=== PATIENT | female | born 1975 | race Caucasian/White ===

== ENCOUNTER 2019-03-16 07:28 | Day surgery (SDC) | payer BC ==
[~2019-03-16 07:28] MED LIST: Bupivacaine 0.25% 10 ML SDV ONE; Methylene Blue 50 MG/10 ML Ampule ONE
[2019-03-16] MEDS ORDERED: Bupivacaine 0.25% 10 ML SDV ONE (07:51)
[2019-03-16] MEDS ORDERED: Sodium Chloride 0.9% 10 ML SDV IV PRN (07:57)
[2019-03-16] MEDS ORDERED: Sodium Chloride 0.9% 10 ML Syringe FLUSH PRN (07:57)
[2019-03-16] MEDS ORDERED: Sodium Chloride 0.9% 2.5 ML Syringe FLUSH PRN (07:57)
[2019-03-16] MEDS ORDERED: Neostigmine Methylsulfate 1 MG/ML 5 ML Syringe ONE (08:28)
[2019-03-16] MEDS ORDERED: Ondansetron 4 MG/2 ML SDV ONE (08:28)
[2019-03-16] MEDS ORDERED: Lidocaine 2% 5 ML SDV ONE (08:28)
[2019-03-16] MEDS ORDERED: Glycopyrrolate 0.2 MG/ML SDV ONE (08:28)
[2019-03-16] MEDS ORDERED: fentaNYL 250 MCG/5 ML SDV ONE (08:29)
[2019-03-16] MEDS ORDERED: Propofol 200 MG/20 ML SDV ONE (08:29)
[2019-03-16] MEDS ORDERED: Midazolam 1 MG/ML 2 ML SDV ONE (08:29)
[2019-03-16] MEDS ORDERED: Fluorescein 5 ML Vial ONE (08:30)
[2019-03-16] MEDS ORDERED: Vasopressin 20 Units/1 ML MDV ONE (08:30)
--- NOTE | 2019-03-16 08:34 | PCM.PREANE ---
Preanesthetic Assessment - Anesthesia/Transfusion/Family Hx Anesthesia History: Prior Anesthesia Without Reaction Family History of Anesthesia Reaction: No Transfusion History: No Prior Transfusion(s) Intubation History: Unknown - Review of Systems General: No Symptoms Pulmonary: No Symptoms Cardiovascular: No Symptoms Gastrointestinal: No Symptoms Neurological: No Symptoms Other: Reports: None - Physical Assessment Height: 5 ft 3 in Weight: 90.265 kg ASA Class: 2 Mental Status: Alert & Oriented x3 Airway Class: Mallampati = 2 Dentition: Reports: Normal Dentition Thyro-Mental Finger Breadths: 3 Mouth Opening Finger Breadths: 3 ROM/Head Extension: Full Lungs: Clear to Auscultation, Normal Respiratory Effort Cardiovascular: Regular Rate, Regular Rhythm - Lab Values: Laboratory Last Values Urine HCG, Qual NEGATIVE (NEGATIVE) 03/16/19 08:05 - Allergies Allergies/Adverse Reactions: Allergies Allergy/AdvReac Type Severity Reaction Status Date / Time No Known Allergies Allergy Verified 03/10/19 14:37 - Blood Blood Available: No - Anesthesia Plan Pre-Op Medication Ordered: None - Acknowledgements Anesthesia Type Planned: General Anesthesia Pt an Appropriate Candidate for the Planned Anesthesia: Yes Alternatives and Risks of Anesthesia Discussed w Pt/Guardian: Yes Pt/Guardian Understands and Agrees with Anesthesia Plan: Yes PreAnesthesia Questionnaire HEENT History: Reports: None Cardiovascular History: Reports: None Respiratory History: Reports: None Gastrointestinal History: Reports: None Genitourinary History: Reports: None 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: Musculoskeletal History: Reports: None Neurological History: Reports: None Psychiatric History: Reports: Depression Endocrine/Metabolic History: Reports: Obesity/BMI 30+ Hematologic History: Reports: None Immunologic History: Reports: None Oncologic (Cancer) History: Reports: None Dermatologic History: Reports: None - Past Surgical History Head Surgeries/Procedures: Reports: None HEENT Surgical History: Reports: Tonsillectomy Cardiovascular Surgical History: Reports: None Respiratory Surgical History: Reports: None GI Surgical History: Reports: None Female Surgical History: Reports: D&C Endocrine Surgical History: Reports: None Neurological Surgical History: Reports: None Musculoskeletal Surgical History: Reports: None Oncologic Surgical History: Reports: None Dermatological Surgical History: Reports: None - SUBSTANCE USE Smoking Status *Q: Current Every Day Smoker (< 1ppd) Tobacco Use Within Last Twelve Months: Cigarettes Recreational Drug Use History: No - HOME MEDS Home Medications: Home Meds Desvenlafaxine Succinate [Pristiq] 100 mg PO DAILY 03/10/19 [History] Ergocalciferol (Vitamin D2) [Vitamin D2] 2,000 units PO DAILY 03/10/19 [History] Levonorgestrel [Mirena] 1 device VAG ONETIME 03/10/19 [History] Multivitamin [Multivitamins] 1 tab PO DAILY 03/10/19 [History] - CURRENT (IN HOUSE) MEDS Current Meds: Current Medications Lactated Ringer's (Ringers, Lactated) 1,000 mls @ 100 mls/hr IV ASDIRECTED CONNIE Sodium Chloride (Saline Flush) 10 ml FLUSH ASDIRECTED PRN PRN Reason: Keep Vein Open Sodium Chloride (Saline Flush) 2.5 ml FLUSH ASDIRECTED PRN PRN Reason: Keep Vein Open Sodium Chloride (Normal Saline) 10 ml IV ASDIRECTED PRN PRN Reason: IV Use Discontinued Medications Bupivacaine HCl (Sensorcaine-Mpf 0.25%) Confirm Administered Dose 20 ml .ROUTE .STK-MED ONE Stop: 03/16/19 07:21 Bupivacaine HCl (Sensorcaine-Mpf 0.25%) Confirm Administered Dose 10 ml .ROUTE .STK-MED ONE Stop: 03/16/19 07:52 Fentanyl (Sublimaze) Confirm Administered Dose 250 mcg .ROUTE .STK-MED ONE Stop: 03/16/19 08:30 Glycopyrrolate (Robinul) Confirm Administered Dose 0.4 mg .ROUTE .STK-MED ONE Stop: 03/16/19 08:29 Lidocaine (Xylocaine-Mpf 2%) Confirm Administered Dose 5 ml .ROUTE .STK-MED ONE Stop: 03/16/19 08:29 Methylene Blue (Provayblue) Confirm Administered Dose 50 mg .ROUTE .STK-MED ONE Stop: 03/16/19 07:20 Midazolam HCl (Versed 1 Mg/Ml) Confirm Administered Dose 2 mg .ROUTE .STK-MED ONE Stop: 03/16/19 08:30 Neostigmine Methylsulfate (Neostigmine) Confirm Administered Dose 5 mg .ROUTE .STK-MED ONE Stop: 03/16/19 08:29 Ondansetron HCl (Zofran) Confirm Administered Dose 4 mg .ROUTE .STK-MED ONE Stop: 03/16/19 08:29 Propofol (Diprivan 20 Ml) Confirm Administered Dose 200 mg .ROUTE .[facility]-MED ONE Stop: 03/16/19 08:30
[2019-03-16] MEDS ORDERED: Scopolamine 1.5 MG Transdermal Patch TRDERM PRN (08:35)
[2019-03-16] MEDS: Lactated Ringers 1,000 ML IV SCH ×2 (08:41→13:42)
[2019-03-16 08:44] LABS: CHLORIDE,CL 106 mmol/L (98-107); SODIUM,NA 140 mmol/L (136-145)
[2019-03-16] MEDS ORDERED: fentaNYL 100 MCG/2 ML SDV ONE ×2 (09:08→10:46)
[2019-03-16] MEDS ORDERED: HYDROmorphone 2 MG/ML Syringe ONE ×3 (09:08→11:38)
[2019-03-16] MEDS ORDERED: ceFAZolin 1 GM Vial ONE (09:52)
[2019-03-16] MEDS ORDERED: Sodium Chloride 0.9% 20 ML ONE (09:52)
[2019-03-16] MEDS ORDERED: ePHEDrine 50 MG/ML SDV ONE (09:58)
[2019-03-16] MEDS ORDERED: Furosemide 40 MG/4 ML VIAL ONE (10:09)
[2019-03-16] MEDS ORDERED: Albuterol 0.083% 2.5 MG/3 ML Neb Soln NEB PRN (10:17)
[2019-03-16] MEDS ORDERED: Atropine 0.1 MG/ML 10 ML Syringe IVPUSH PRN ×2 (10:17)
[2019-03-16] MEDS ORDERED: Naloxone 0.4 MG/ML Syringe IVPUSH PRN (10:17)
[2019-03-16] MEDS ORDERED: fentaNYL 100 MCG/2 ML SDV IVPUSH PRN (10:17)
[2019-03-16] MEDS ORDERED: EPINEPHrine 1:10,000 1 MG/10 ML Syringe IVPUSH PRN (10:17)
[2019-03-16] MEDS ORDERED: 50% Dextrose in Water 50 ML Syringe IVPUSH PRN (10:17)
[2019-03-16] MEDS ORDERED: Octyl 2-Cyanoacrylate 1 Tube ONE (11:43)
[2019-03-16] MEDS ORDERED: Racepinephrine 2.25% 0.5 ML Neb Soln ONE (12:00)
[2019-03-16] MEDS ORDERED: Racepinephrine 2.25% 0.5 ML Neb Soln NEB ONE (12:04)
[2019-03-16] MEDS ORDERED: Sodium Chloride 0.9% Inhalation Soln 3 ML Neb INH PRN (12:04)
[2019-03-16] MEDS ORDERED: Ondansetron 4 MG/2 ML SDV IVPUSH PRN (12:07)
[2019-03-16] MEDS ORDERED: Acetaminophen/oxyCODONE 325-5 MG Tab PO PRN (12:07)
[2019-03-16] MEDS ORDERED: Morphine 4 MG/ML Syringe IVPUSH PRN (12:07)
[2019-03-16] MEDS ORDERED: Ketorolac 30 MG/ML SDV IVPUSH ONE (12:07)
[2019-03-16] MEDS ORDERED: Promethazine 25 MG/ML SDV IM PRN (12:07)
[2019-03-16] MEDS: Acetaminophen 1,000 MG in Premix Bag 1 BAG IV SCH ×2 (13:41→17:48)
[2019-03-16] MEDS: Metoclopramide 10 MG/2 ML SDV IVPUSH SCH ×2 (13:41→20:33)
--- NOTE | 2019-03-16 14:17 | PCM.POSTAN ---
POST ANESTHESIA ASSESSMENT - MENTAL STATUS Mental Status: Alert, Oriented - VITAL SIGNS Pulse Rate: 114 SaO2: 98 Resp Rate: 11 Blood Pressure: 140/77 - RESPIRATORY Respiratory Status: Respiratory Rate WNL, Airway Patent, O2 Saturation Stable - CARDIOVASCULAR CV Status: Pulse Rate WNL, Blood Pressure Stable - GASTROINTESTINAL GI Status: No Symptoms - PAIN Pain Score: 2 - POST OP HYDRATION Hydration Status: Adequate & Stable
[2019-03-16] MEDS: Acetaminophen/oxyCODONE 325-5 MG Tab PO PRN ×2 (16:38→20:42)
[2019-03-16] MEDS: Desvenlafaxine Succinate [Pristiq] 100 MG PO SCH (16:40)
[2019-03-16] MEDS ORDERED: Ketorolac 30 MG/ML SDV IVPUSH PRN (18:00)
[2019-03-17] MEDS: Acetaminophen 1,000 MG in Premix Bag 1 BAG IV SCH ×2 (00:20→05:30)
[2019-03-17] MEDS: Metoclopramide 10 MG/2 ML SDV IVPUSH SCH (05:19)
[2019-03-17] MEDS: Acetaminophen/oxyCODONE 325-5 MG Tab PO PRN (05:24)
[2019-03-17 06:47] LABS: CHLORIDE,CL 104 mmol/L (98-107); SODIUM,NA 139 mmol/L (136-145)
--- NOTE | 2019-03-17 07:12 | PCM48HPAN ---
Post Anesthesia Note - EVALUATION WITHIN 48HRS OF ANESTHETIC Vital Signs in Normal Range: Yes Patient Participated in Evaluation: Yes Respiratory Function Stable: Yes Airway Patent: Yes Cardiovascular Function Stable: Yes Hydration Status Stable: Yes Pain Control Satisfactory: Yes Nausea and Vomiting Control Satisfactory: Yes Mental Status Recovered: Yes Pulse Rate: 77 SaO2: 97 Resp Rate: 16 Temperature: 96.7 F Blood Pressure: 125/74
--- NOTE | 2019-03-17 07:51 | PCM.OPNOTE ---
- General Post-Op/Procedure Note Date of Surgery/Procedure: 03/17/19 Operative Procedure(s): LAVH/BS Findings: EUA showed normal sized uterus Laparoscopy shows normal pelvis , no endometriosis Pre Op Diagnosis: Abnormal uterine bleeding. Chronic pelvic pain Post-Op Diagnosis: Same Anesthesia Technique: General ET Tube Primary Surgeon: Mckenzie Brambila Secondary Surgeon: Monalisa Nuñez Pathology: Uterus and tubes Fluid Replacement, Intraop: 2,000 Output, Urine Amount: 300 EBL in mLs: 300 Complications: None Condition: Good Free Text/Narrative:: Intake & Output 03/16/19 03/17/19 03/17/19 22:59 06:59 14:59 Intake Total 440 2330 Output Total 350 1200 Balance 90 1130
--- NOTE | 2019-03-17 09:37 | PCM.SURGPN ---
- General Info Date of Service: 03/17/19 Date of Surgery/Procedure: 03/16/19 POD#: 1 Functional Status: Reports: Pain Controlled, Tolerating Diet, Ambulating, Urinating - Review of Systems General: Reports: No Symptoms HEENT: Reports: No Symptoms Pulmonary: Reports: No Symptoms Cardiovascular: Reports: No Symptoms Gastrointestinal: Reports: No Symptoms Genitourinary: Reports: No Symptoms Musculoskeletal: Reports: No Symptoms Skin: Reports: No Symptoms Neurological: Reports: No Symptoms Psychiatric: Reports: No Symptoms - Patient Data Vitals - Most Recent: Last Vital Signs Temp 36.8 C 03/17/19 07:35 Pulse 85 03/17/19 07:35 Resp 16 03/17/19 07:35 BP 133/73 03/17/19 07:35 Pulse Ox 96 03/17/19 07:35 Weight - Most Recent: 90.265 kg I&O - Last 24 Hours: Intake & Output 03/16/19 03/17/19 03/17/19 22:59 06:59 14:59 Intake Total 440 2330 2000 Output Total 350 1200 300 Balance 90 1130 1700 Lab Results Last 24 Hrs: Laboratory Results - last 24 hr 03/17/19 03/17/19 Range/Units 05:50 05:50 WBC 8.38 (4.0-11.0) K/uL RBC 4.17 L (4.30-5.90) M/uL Hgb 11.6 L (12.0-16.0) g/dL Hct 35.7 L (36.0-46.0) % MCV 85.6 (80.0-98.0) fL MCH 27.8 (27.0-32.0) pg MCHC 32.5 (31.0-37.0) g/dL RDW Std Deviation 42.8 (28.0-62.0) fl RDW Coeff of Da 14 (11.0-15.0) % Plt Count 220 (150-400) K/uL MPV 10.50 (7.40-12.00) fL Neut % (Auto) 71.8 (48.0-80.0) % Lymph % (Auto) 21.4 (16.0-40.0) % Blount % (Auto) 6.4 (0.0-15.0) % Eos % (Auto) 0.2 (0.0-7.0) % Baso % (Auto) 0.2 (0.0-1.5) % Neut # (Auto) 6.0 H (1.4-5.7) K/uL Lymph # (Auto) 1.8 (0.6-2.4) K/uL Blount # (Auto) 0.5 (0.0-0.8) K/uL Eos # (Auto) 0.0 (0.0-0.7) K/uL Baso # (Auto) 0.0 (0.0-0.1) K/uL Nucleated RBC % 0.0 /100WBC Nucleated RBCs # 0 K/uL Sodium 139 (136-145) mmol/L Potassium 3.5 (3.5-5.1) mmol/L Chloride 104 (98-107) mmol/L Carbon Dioxide 26.6 (21.0-32.0) mmol/L BUN 5 L (7.0-18.0) mg/dL Creatinine 0.5 L (0.6-1.0) mg/dL Est Cr Clr Drug Dosing 120.01 mL/min Estimated GFR (MDRD) > 60.0 ml/min Glucose 99 (74-106) mg/dL Calcium 8.2 L (8.5-10.1) mg/dL Med Orders - Current: Current Medications Lactated Ringer's (Ringers, Lactated) 1,000 mls @ 100 mls/hr IV ASDIRECTED [facility] Last Admin: 03/16/19 13:42 Dose: 100 mls/hr Acetaminophen 1,000 mg/ Premix 100 mls @ 400 mls/hr IV Q6H [facility] Last Admin: 03/17/19 05:30 Dose: 400 mls/hr Ketorolac Tromethamine (Toradol) 30 mg IVPUSH Q6H PRN PRN Reason: Pain (severe 7-10) Stop: 03/21/19 18:01 Metoclopramide HCl (Reglan) 10 mg IVPUSH Q8H [facility] Last Admin: 03/17/19 05:19 Dose: 10 mg Morphine Sulfate (Morphine) 4 mg IVPUSH Q2H PRN PRN Reason: Pain (severe 7-10) Naloxone HCl (Narcan) 0.1 mg IVPUSH ASDIRECTED PRN PRN Reason: Respiratory Depression Ondansetron HCl (Zofran) 4 mg IVPUSH Q6H PRN PRN Reason: Nausea/Vomiting Oxycodone/Acetaminophen (Percocet 325-5 Mg) 1 tab PO Q4H PRN PRN Reason: Pain (moderate 4-6) Last Admin: 03/17/19 05:24 Dose: 1 tab Oxycodone/Acetaminophen (Percocet 325-5 Mg) 2 tab PO Q4H PRN PRN Reason: Pain (moderate 4-6) Desvenlafaxine Succinate [Pristiq] 100 Mg 100 each PO DAILY CONNIE Last Admin: 03/16/19 16:40 Dose: 100 each Promethazine HCl (Phenergan) 25 mg IM Q6H PRN PRN Reason: Nausea/Vomiting Scopolamine (Transderm-Scop) 1.5 mg TRDERM Q72H PRN PRN Reason: Nausea Last Admin: 03/16/19 09:06 Dose: 1.5 mg Sodium Chloride (Saline Flush) 10 ml FLUSH ASDIRECTED PRN PRN Reason: Keep Vein Open Sodium Chloride (Saline Flush) 2.5 ml FLUSH ASDIRECTED PRN PRN Reason: Keep Vein Open Sodium Chloride (Normal Saline) 10 ml IV ASDIRECTED PRN PRN Reason: IV Use Sodium Chloride (Sodium Chloride 0.9%) 3 ml INH ASDIRECTED PRN PRN Reason: mix with racepinephrine neb Discontinued Medications Albuterol (Proventil Neb Soln) 2.5 mg NEB ONETIME PRN PRN Reason: Wheezing Atropine Sulfate (Atropine 0.1 Mg/Ml) 0.5 mg IVPUSH ASDIRECTED PRN PRN Reason: Hypo-perfusion Atropine Sulfate (Atropine 0.1 Mg/Ml) 1 mg IVPUSH ASDIRECTED PRN PRN Reason: Hypo-Perfusion Bupivacaine HCl (Sensorcaine-Mpf 0.25%) Confirm Administered Dose 20 ml .ROUTE .STK-MED ONE Stop: 03/16/19 07:21 Bupivacaine HCl (Sensorcaine-Mpf 0.25%) Confirm Administered Dose 10 ml .ROUTE .STK-MED ONE Stop: 03/16/19 07:52 Cefazolin Sodium (Ancef) Confirm Administered Dose 2 gm .ROUTE .STK-MED ONE Stop: 03/16/19 09:53 Dextrose/Water (Dextrose 50% In Water) 50 ml IVPUSH ASDIRECTED PRN PRN Reason: Hypoglycemia Ephedrine Sulfate (Ephedrine Sulfate) Confirm Administered Dose 50 mg .ROUTE .STK-MED ONE Stop: 03/16/19 09:59 Epinephrine HCl (Epinephrine 1:10,000) 1 mg IVPUSH ASDIRECTED PRN PRN Reason: ACLS Guidelines Fentanyl (Sublimaze) Confirm Administered Dose 250 mcg .ROUTE .STK-MED ONE Stop: 03/16/19 08:30 Fentanyl (Sublimaze) Confirm Administered Dose 100 mcg .ROUTE .STK-MED ONE Stop: 03/16/19 09:09 Fentanyl (Sublimaze) 50 - 100 mcg IVPUSH Q5M PRN PRN Reason: Pain Fentanyl (Sublimaze) Confirm Administered Dose 100 mcg .ROUTE .STK-MED ONE Stop: 03/16/19 10:47 Fluorescein Sodium (Ak-Fluor) Confirm Administered Dose 5 ml .ROUTE .STK-MED ONE Stop: 03/16/19 08:31 Furosemide (Lasix) Confirm Administered Dose 40 mg .ROUTE .STK-MED ONE Stop: 03/16/19 10:10 Glycopyrrolate (Robinul) Confirm Administered Dose 0.4 mg .ROUTE .STK-MED ONE Stop: 03/16/19 08:29 Hydromorphone HCl (Dilaudid) Confirm Administered Dose 2 mg .ROUTE .STK-MED ONE Stop: 03/16/19 09:09 Hydromorphone HCl (Dilaudid) Confirm Administered Dose 2 mg .ROUTE .STK-MED ONE Stop: 03/16/19 10:41 Hydromorphone HCl (Dilaudid) Confirm Administered Dose 2 mg .ROUTE .STK-MED ONE Stop: 03/16/19 11:39 Sodium Chloride (Normal Saline) Confirm Administered Dose 20 mls @ as directed .ROUTE .STK-MED ONE Stop: 03/16/19 09:53 Ketorolac Tromethamine (Toradol) 30 mg IVPUSH ONETIME ONE Stop: 03/16/19 12:08 Last Admin: 03/16/19 13:33 Dose: Not Given Lidocaine (Xylocaine-Mpf 2%) Confirm Administered Dose 5 ml .ROUTE .STK-MED ONE Stop: 03/16/19 08:29 Methylene Blue (Provayblue) Confirm Administered Dose 50 mg .ROUTE .STK-MED ONE Stop: 03/16/19 07:20 Midazolam HCl (Versed 1 Mg/Ml) Confirm Administered Dose 2 mg .ROUTE .STK-MED ONE Stop: 03/16/19 08:30 Neostigmine Methylsulfate (Neostigmine) Confirm Administered Dose 5 mg .ROUTE .STK-MED ONE Stop: 03/16/19 08:29 Octyl Cyanoacrylate (Dermabond Advance) Confirm Administered Dose 1 applic .ROUTE .STK-MED ONE Stop: 03/16/19 11:44 Ondansetron HCl (Zofran) Confirm Administered Dose 4 mg .ROUTE .STK-MED ONE Stop: 03/16/19 08:29 Propofol (Diprivan 20 Ml) Confirm Administered Dose 200 mg .ROUTE .STK-MED ONE Stop: 03/16/19 08:30 Racepinephrine (S-2 2.25%) Confirm Administered Dose 0.5 ml .ROUTE .STK-MED ONE Stop: 03/16/19 12:01 Last Admin: 03/16/19 12:05 Dose: 0.5 ml Racepinephrine (S-2 2.25%) 0.5 ml NEB ONETIME ONE Stop: 03/16/19 12:05 Last Admin: 03/16/19 15:28 Dose: Not Given Vasopressin (Vasopressin) Confirm Administered Dose 20 units .ROUTE .STK-MED ONE Stop: 03/16/19 08:31 - Exam Wound/Incisions: Dressing Dry and Intact General: Alert HEENT: Pupils Equal Lungs: Clear to Auscultation Cardiovascular: Regular Rate, Regular Rhythm GI/Abdominal Exam: Normal Bowel Sounds Extremities: Normal Inspection Neurological: No New Focal Deficit Psy/Mental Status: Alert - Problem List & Annotations (1) S/P hysterectomy SNOMED Code(s): 139846767, 944622739, 199908329 Code(s): Z90.710 - ACQUIRED ABSENCE OF BOTH CERVIX AND UTERUS Status: Acute Current Visit: Yes - Problem List Review Problem List Initiated/Reviewed/Updated: Yes - My Orders Last 24 Hours: Active Orders 24 hr Category Date Time Status Patient Status [ADT] Routine ADT 03/16/19 12:08 Active Antiembolic Devices [RC] PER UNIT ROUTINE Care 03/16/19 12:12 Active Blood Glucose Check, Bedside [RC] PRN Care 03/16/19 10:17 Active Notify Provider Intake and Out [RC] ASDIRECTED Care 03/16/19 12:08 Active Notify Provider Vital Signs [RC] ASDIRECTED Care 03/16/19 12:08 Active Oxygen Therapy [RC] ASDIRECTED Care 03/16/19 12:08 Active Oxygen Therapy [RC] PRN Care 03/16/19 10:17 Active RT Aerosol Therapy [RC] ASDIRECTED Care 03/16/19 10:17 Active RT Aerosol Therapy [RC] ASDIRECTED Care 03/16/19 10:17 Inactive RT Incentive Spirometry [RC] Q2HWA Care 03/16/19 12:08 Active Urinary Catheter Removal [RC] Per Unit Routine Care 03/16/19 12:08 Active Vital Signs [RC] PER UNIT ROUTINE Care 03/16/19 12:08 Active Regular Diet [DIET] Diet 03/17/19 Breakfast Active Acetaminophen [Ofirmev] 1,000 mg Med 03/16/19 12:30 Active Premix Bag 1 bag IV Q6H Acetaminophen/oxyCODONE [Percocet 325-5 MG] Med 03/16/19 12:07 Active 1 tab PO Q4H PRN Acetaminophen/oxyCODONE [Percocet 325-5 MG] Med 03/16/19 12:07 Active 2 tab PO Q4H PRN Ketorolac [Toradol] Med 03/16/19 18:00 Active 30 mg IVPUSH Q6H PRN Metoclopramide [Reglan] Med 03/16/19 12:30 Active 10 mg IVPUSH Q8H Morphine Med 03/16/19 12:07 Active 4 mg IVPUSH Q2H PRN Naloxone [Narcan] Med 03/16/19 10:17 Active 0.1 mg IVPUSH ASDIRECTED PRN Ondansetron [Zofran] Med 03/16/19 12:07 Active 4 mg IVPUSH Q6H PRN Patient's Own Medication [Ptom] Med 03/16/19 15:45 Active 100 each PO DAILY Promethazine [Phenergan] Med 03/16/19 12:07 Active 25 mg IM Q6H PRN Sodium Chloride 0.9% Med 03/16/19 12:04 Active 3 ml INH ASDIRECTED PRN Peripheral IV Discontinue [OM.PC] Routine Oth 03/16/19 12:08 Ordered Sequential Compression Device [OM.PC] Per Unit Routine Oth 03/16/19 12:08 Ordered Resuscitation Status Routine Resus Stat 03/16/19 12:07 Ordered Medication Orders Lactated Ringer's (Ringers, Lactated) 1,000 mls @ 100 mls/hr IV ASDIRECTED [facility] Last Admin: 03/16/19 13:42 Dose: 100 mls/hr Infusion: 03/16/19 13:42 Dose: 100 mls/hr Admin: 03/16/19 08:41 Dose: 100 mls/hr Acetaminophen 1,000 mg/ Premix 100 mls @ 400 mls/hr IV Q6H [facility] Last Admin: 03/17/19 05:30 Dose: 400 mls/hr Infusion: 03/17/19 00:35 Dose: 400 mls/hr Admin: 03/17/19 00:20 Dose: 400 mls/hr Infusion: 03/16/19 18:03 Dose: 400 mls/hr Admin: 03/16/19 17:48 Dose: 400 mls/hr Infusion: 03/16/19 13:56 Dose: 400 mls/hr Admin: 03/16/19 13:41 Dose: 400 mls/hr Ketorolac Tromethamine (Toradol) 30 mg IVPUSH Q6H PRN PRN Reason: Pain (severe 7-10) Stop: 03/21/19 18:01 Metoclopramide HCl (Reglan) 10 mg IVPUSH Q8H [facility] Last Admin: 03/17/19 05:19 Dose: 10 mg Admin: 03/16/19 20:33 Dose: 10 mg Admin: 03/16/19 13:41 Dose: 10 mg Morphine Sulfate (Morphine) 4 mg IVPUSH Q2H PRN PRN Reason: Pain (severe 7-10) Naloxone HCl (Narcan) 0.1 mg IVPUSH ASDIRECTED PRN PRN Reason: Respiratory Depression Ondansetron HCl (Zofran) 4 mg IVPUSH Q6H PRN PRN Reason: Nausea/Vomiting Oxycodone/Acetaminophen (Percocet 325-5 Mg) 1 tab PO Q4H PRN PRN Reason: Pain (moderate 4-6) Last Admin: 03/17/19 05:24 Dose: 1 tab Admin: 03/16/19 20:42 Dose: 1 tab Admin: 03/16/19 16:38 Dose: 1 tab Oxycodone/Acetaminophen (Percocet 325-5 Mg) 2 tab PO Q4H PRN PRN Reason: Pain (moderate 4-6) Desvenlafaxine Succinate [Pristiq] 100 Mg 100 each PO DAILY CONNIE Last Admin: 03/16/19 16:40 Dose: 100 each Promethazine HCl (Phenergan) 25 mg IM Q6H PRN PRN Reason: Nausea/Vomiting Scopolamine (Transderm-Scop) 1.5 mg TRDERM Q72H PRN PRN Reason: Nausea Last Admin: 03/16/19 09:06 Dose: 1.5 mg Sodium Chloride (Saline Flush) 10 ml FLUSH ASDIRECTED PRN PRN Reason: Keep Vein Open Sodium Chloride (Saline Flush) 2.5 ml FLUSH ASDIRECTED PRN PRN Reason: Keep Vein Open Sodium Chloride (Normal Saline) 10 ml IV ASDIRECTED PRN PRN Reason: IV Use Sodium Chloride (Sodium Chloride 0.9%) 3 ml INH ASDIRECTED PRN PRN Reason: mix with racepinephrine neb - Assessment Assessment (Free Text/Narrative):: 43 yo s/p DAVID GARNETT , denies any complains today , She is ambulating , voiding and tolerating regular diet - Plan Plan (Free Text/Narrative):: Discharge home
[2019-03-17] MEDS: Desvenlafaxine Succinate [Pristiq] 100 MG PO SCH (09:38)
[2019-03-17] MEDS ORDERED: Enoxaparin 40 MG/0.4 ML Syringe SUBCUT ONE (09:48)
--- NOTE | 2019-03-17 12:44 | OR ---
DATE OF PROCEDURE: 03/16/2019 SURGEON: BORIS STRATTON PREOPERATIVE DIAGNOSIS: A 43-year-old with abnormal uterine bleeding. POSTOPERATIVE DIAGNOSIS: A 43-year-old with abnormal uterine bleeding. PROCEDURES: Laparoscopic assisted vaginal hysterectomy and bilateral salpingectomy. ESTIMATED BLOOD LOSS: 300. IV FLUIDS: 2000. URINE OUTPUT: 300. ANESTHESIA: General anesthesia. NOTES AND FINDING: A normal-sized uterus, tubes and ovaries . Laparoscopy showed no endometriosis. Normal pelvic floor.Cytoscopy showed intact bladder , Bilateral ureteral jets BRIEF HISTORY: A 43-year-old complaining of abnormal uterine bleeding and severe pelvic pain. She had workup done which was negative. EMB was negative. All test was negative. She desired definitive management. She was explained the risks, benefits, and alternatives, and she wanted to proceed. DESCRIPTION OF PROCEDURE: The patient was taken to the operating room where general anesthesia was performed without difficulty. She was prepared and draped in the dorsal lithotomy position with Lobo stirrups. A howe catheter was placed. Exposure of the cervix was achieved with speculum. Anterior lip of cervix was then grasped and the cervix was dilated to accomodate uterine manipulator, The uterine manipulator was placed. Then, attention was placed to the abdomen where infraumbilical incision was made after Marcaine was injected. Direct entry was done and visualization confirmed entry into the peritoneal cavity. The CO2 pneumoperitoneum was inflated to 15 mmHg. The patient was placed in the Trendelenburg position. Then, a lower quadrant incision was made in the right and the left lower quadrant 2 fingerbreadths superior and medial to the anterior superior iliac spine. The trocars were then placed under direct entry. The above-noted finding was observed. Then, the right tube was grasped and then sequentially cut and coagulated all the way to the cornua. Round ligament was also transected, and the bladder flap was created with the aid of the ligature device . The same was done on the left side. The uterine vessels were then coagulated and cut. Then, attention was then paid to the perineum. The weighted speculum was placed in the posterior fornix. The right angled retractor was used to retract the anterior fornix. A circumferential incision was made around the cervico- vaginal junction. Then, the posterior cul-de-sac was entered with the aid of the picker machine operator and heavy mancia scissors. and the long weighted speculum was placed in the posterior cul-de-sac . Then, with gradual dissection with the metzebaum scissor , the anterior cul-de- sac was also entered. On the right and the left side The uterosacral ligament was clamped with the andry clamp, cut and suture ligated with 2.0 vicryl.. Next, the cardinal ligament and the uterine vessel ,was clamped, cut and suture ligated with 2.0 vicryl . . Then, the uterus was then removed from the vagina,. The uterosacral stitches were then attached to the posterior vaginal wall. The colpotomy was then sutured with 0 Polysorb in continuous locking fashion. Cystoscopy was done, intact bladder was noted, and bilateral orifice was also noted. All instrument and pad count were correct x2. The patient tolerated the procedure well and was taken to recovery room in stable condition. ESTEFANIA FIGUEREDO /[id number]
== END 2019-03-17 10:15 | disposition home or self-care (01) ==
LOC: MW.SDS 07:28 → MW.MS 12:08 → MW.SDS 03-17 10:15
PROVIDERS: ATTEND Obstetrics & Gynecology
DX: N80.0 Endometriosis of uterus (principal); N87.9 Dysplasia of cervix uteri, unspecified; F17.210 Nicotine dependence, cigarettes, uncomplicated; F32.9 Major depressive disorder, single episode, unspecified; Z79.899 Other long term (current) drug therapy
CPT/HCPCS: 36415; 58552; 80048; 81025; 85025; 85027; 86850; 86900; 86901; 88300; 88307; 94640; A4217; A9270; J0131; J0690; J1170; J1650; J1940; J2001; J2250; J2405; J2704; J2765; J3010; J3490; J7120; 00944